=== PATIENT | male | born 1940 | race American Indian/Alaskan Native ===

== ENCOUNTER 2016-10-11 10:06 | Inpatient (IN) | payer MEDICARE, OTHER ==
[2016-10-09 16:24] LABS: HEMOGLOBIN 13.3 g/dL (13.6-17.8)
[2016-10-09 16:25] LABS: HEMATOCRIT 39.6 % (40.0-51.0)
[2016-10-09 16:37] LABS: BUN (BLOOD UREA NITROGEN) 19 MG/DL (6-23); CALCIUM, SERUM 8.9 MG/DL (8.5-10.4); CHLORIDE, SERUM 105 MMOL/L (96-112); CO2 (CARBON DIOXIDE) 29 MMOL/L (24-34); CREATININE 1.01 MG/DL (0.70-1.30); GFR AFRICAN AMERICAN 85 ML/MIN (>=60); GFR NON AFRICAN AMERICAN 73 ML/MIN (>=60); GLUCOSE, SERUM 171 MG/DL (60-99); POTASSIUM, SERUM 4.1 MMOL/L (3.5-5.3); SODIUM, SERUM 142 MMOL/L (135-148)
[2016-10-09 18:42] LABS: ASCORBIC ACID (UR NOT ORDER) NEG (NEG); BILIRUBIN, URINE NEGATIVE (NEG); KETONE, URINE NEGATIVE (NEG); LEUKOCYTE ESTERASE(NOT OR SMALL (NEG); WBC (NOT ORDERED) (RFLEX) 2 (0-5)
--- NOTE | ~2016-10-11 | DS ---
Discharge Summary [facility] [id number] [place]. [address] NAME: ALEXUS HOWELL : 44 STATUS : DIS IN PAT#: [id number] AGE: 76 ADM/REG DATE : 10/11/16 MR#: [id number] REPORT SERV DATE: 10/21/16 DICTATED BY: HIMA PEREZ DATE: 10/21/16 REPORT STATUS : Draft TRANSCRIBED BY: MODL DATE: 10/21/16 ADMISSION DATE: 10/11/2016 DISCHARGE DATE: 10/16/2016 DISCHARGE DIAGNOSES: 1. Hypertension. 2. Diabetes. 3. Benign prostatic hyperplasia with obstruction. DISCHARGE PROCEDURES: Robot-assisted laparoscopic simple prostatectomy. HOSPITAL COURSE: Mr. Howell is a very pleasant male with BPH and urinary retention. On the day of admission, he underwent the above-mentioned procedure. He tolerated this procedure well and there were no complications. For full operative details, see my operative note. Postoperatively, he was transferred to the recovery room, then to the floor in stable condition. A Koo catheter placed during surgery was maintaining his bladder, and CBI was eventually weaned to clear with his urine cleared. A ADILENE drain placed during the surgery was removed during this hospitalization. His hospital events were notable for hypertension, for which a hospice consult was obtained and recommendations were followed. He had a slight ileus, which was managed conservatively. He had good bowel function and bowel movements prior to discharge. On the day of discharge, his pain was well controlled with all pain medications. He was ambulating independently and his bowels are working. He has been deemed medically fit for home and was discharged to home. DISCHARGE MEDICATIONS: Please see discharge medication reconciliation work sheet. FOLLOWUP: Please follow up with me in two days for Koo catheter removal. INSTRUCTIONS: Please see my preprinted discharge instructions. CELINA/SHELLY Hima Perez MD / [id number] CC: Hima Perez MD
--- NOTE | ~2016-10-11 | CN ---
Consultation Report [facility] [address] [place]. [address] NAME: ALEXUS HOWELL : 44 STATUS : ADM IN [facility]#: [id number] AGE: 76 ADM/REG DATE : 10/11/16 MR#: [id number] REPORT SERV DATE: 10/12/16 DICTATED BY: KIT AGUILAR DATE: 10/12/16 REPORT STATUS : Draft TRANSCRIBED BY: SHELLY DATE: 10/12/16 CONSULTATION DATE OF CONSULTATION: 10/12/2016 REASON FOR CONSULTATION: Management of uncontrolled blood pressure. IMPRESSION: 1. Essential hypertension that is uncontrolled in this postoperative patient. 2. Type 2 diabetes mellitus. 3. Hematuria. 4. History of congestive heart failure. 5. Dermatophytosis of the nails. 6. Hypertensive heart disease. 7. Hyperthyroidism, last known TSH was 0.05. 8. Prostatic hypertrophy with prostate cancer. 9. Poor memory. 10.Generalized vitiligo. PLAN: Check routine labs including CBC and a renal profile. Start hydralazine 10 mg IV every six hours p.r.n. for blood pressure greater than 160/90. Increase Cozaar to 50 mg twice daily. Continue Coreg as ordered at 6.25 mg twice daily. Decrease IV fluids to KVO. Check a TSH on blood in lab. Check fingerstick blood glucose at bedtime and before meals. Continue the level 1 sliding scale that has already been ordered. We will check a hemoglobin A1c with next lab draw. At this time, the patient's database is incomplete and we will continue to follow and make recommendations as needed. For the status post prostate surgery and hematuria, we will be deferred to Dr. Reece Perez and the primary team. We thank you for this consultation. We will continue to follow with you. HISTORY OF PRESENT ILLNESS: The patient is a 76-year-old, southeast male, admitted to Urology Service status post robotic prostatectomy for possibility of prostate cancer and benign prostatic hypertrophy. Medicine Service was asked to see the patient for management of hypertension that was somewhat uncontrolled and the patient's systolic blood pressure as high as 207. This patient denies any nausea, vomiting, chest pain, shortness of breath, fever, chills, or any other constitutional symptoms at this time. REVIEW OF SYSTEMS: A 14-point review of systems negative. PAST MEDICAL HISTORY: As obtained from previous records. He has osteoarthritis of the knees, hypertension. He has benign hematuria, congestive heart failure with a last known EF of about 50% in 06/2014. He has type 2 diabetes mellitus with diabetic neuropathy and uncontrolled diabetes due to patient's lack of compliance. He has hypertensive heart disease. He has hyperthyroidism and has not been worked up due to patient's noncompliance. Consultation Report [address] [place]. [address] NAME: ALEXUS HOWELL : 44 STATUS : ADM IN PAT#: [id number] AGE: 76 ADM/REG DATE : 10/11/16 MR#: [id number] REPORT SERV DATE: 10/12/16 DICTATED BY: KIT AGUILAR DATE: 10/12/16 REPORT STATUS : Draft TRANSCRIBED BY: SHELLY DATE: 10/12/16 He has hypertrophy of the prostate. He has memory loss and he had general vitiligo. PAST SURGICAL HISTORY: Significant for prostate surgery and a hernia repair. ALLERGIES: NO KNOWN DRUG ALLERGIES. HOME MEDICATIONS: Include: Aspirin 81 mg once daily, Coreg 6.25 mg twice daily, vitamin D3 at 2000 units once daily, glyburide 2.5 mg once daily with 5 mg once in the evening, Cozaar 50 mg once daily, UroMax 0.4 mg once at bedtime and multivitamins. SOCIAL HISTORY: He has never been a smoker. He is . No use of alcohol or illicit substances. FAMILY HISTORY: Noncontributory for this encounter. PHYSICAL EXAMINATION: GENERAL: A southeast male, lying in bed, appears to be in no obvious respiratory distress. He is awake and alert. He is oriented. VITAL SIGNS: Blood pressure is 149/65, pulse is 78, saturation of 94% on room air, temp is 97.9. HEENT: Head is normocephalic, atraumatic. Pupils are equal, round, and reactive to light. Extraocular muscles are intact. Sclerae anicteric. Conjunctivae normal. Oropharynx without lesion. Tongue protrusion midline. Uvula midline. NECK: Supple. No jugular venous distention. No carotid bruits or thyromegaly is appreciated. No lymphadenopathy in the neck is palpable. HEART: Regular rate rhythm. No murmurs, rubs, or gallops are heard. PMI is nondisplaced. LUNGS: Clear to auscultation both anteriorly and posteriorly without rales, rhonchi, wheezing, or consolidation. ABDOMEN: Slightly obese, soft, nontender, good bowel sounds. No rebound or guarding. No organomegaly. EXTREMITIES: Without cyanosis, clubbing, or edema. Koo catheter is in place. Three-way irrigation is continuous. There is a pxmf-mh-vgfaeg red color urine in the Koo bag as well as into the tubing. NEUROLOGICAL: Patient is able to move all four at this time. LABORATORY DATA: Most recent labs: Sodium of 139, potassium 4.3, chloride is 104, bicarb 22, BUN 16, creatinine 1.07, glucose is 142, and calcium is 8.1. Last known hemoglobin A1c was in 2011 of 5.7. CBC: White count is 14.7, hemoglobin of 13.2, hematocrit 39, platelet count is 240,000. Urinalysis: No recent urinalysis except one done preoperatively. Urine culture: Diphtheroids, with gram-negative rods. No sensitivities or cultures performed. Once again, we thank you for this consultation. We will continue to follow with you. Consultation Report [address] [address] NAME: ALEXUS HOWELL : 44 STATUS : ADM IN [facility]#: [id number] AGE: 76 ADM/REG DATE : 10/11/16 MR#: [id number] REPORT SERV DATE: 10/12/16 DICTATED BY: KIT AGUILAR DATE: 10/12/16 REPORT STATUS : Draft TRANSCRIBED BY: SHELLY DATE: 10/12/16 SV/SHELLY Kit Aguilar M.D. / [id number] CC: MD Tobi Mazariegos M.D.
--- NOTE | ~2016-10-11 | OP ---
Record Of Operation [facility] [address] [place]. [address] NAME: ALEXUS HOWELL : 44 STATUS : ADM IN [facility]#: [id number] AGE: 76 ADM/REG DATE : 10/11/16 MR#: [id number] REPORT SERV DATE: 10/14/16 DICTATED BY: HIMA PEREZ DATE: 10/14/16 REPORT STATUS : Draft TRANSCRIBED BY: MODL DATE: 10/14/16 DATE OF PROCEDURE: 10/11/2016 ATTENDING PHYSICIAN: Hima Perez M.D. TITLE OF OPERATION: 1. Laparoscopic lysis of adhesions. 2. Robot-assisted laparoscopic simple prostatectomy. PREOPERATIVE DIAGNOSES: 1. Benign prostatic hypertrophy with obstruction. 2. Urinary retention. POSTOPERATIVE DIAGNOSES: 1. Benign prostatic hypertrophy with obstruction. 2. Urinary retention. INDICATIONS: Mr. Howell is a 76-year-old male with bilateral hydronephrosis and urinary retention due to the prostate greater than 150 g. He was given options. He elected for a robotic simple prostatectomy. ANESTHESIA: General. COMPLICATIONS: None. IMPLANTS: 1. Flat #1, round #10 ADILENE drain. 2. Pvttgk-qoeb-Pvmwre [address] way Koo catheter. SPECIMEN: Prostatic adenoma. NARRATIVE: The patient was brought to the operating room, identified by his wristband. General anesthesia was induced and Ancef was given for preoperative antibiotics. He was placed in the dorsal lithotomy position, prepped and draped in sterile fashion. I attempted to place a Koo catheter, however, we could not get a Koo catheter into his bladder due to his prostatic hyperplasia. His abdomen was then insufflated to a pressure of 15 mmHg using a Veress needle. A supraumbilical incision was made and a 12 mm port was placed into the body under direct vision. The abdomen was inspected. There were some adhesions from his prior surgery along the right side of the body and the pelvis. A second 8 mm port was placed in the right side of the body. Using laparoscopic scissors, an extensive lysis of adhesions was performed. This portion of the operation took approximately 45 minutes. Next, standard X-Y port placement was performed with two 8 mm ports in the left side of the body and one on the right side of the body. A 12 mm port was placed in the right lower quadrant, an video production assistant port and a separate 5 mm port was placed in the right upper quadrant for an video production assistant port. The patient was placed in deep Trendelenburg. The robot was docked. The bladder was dropped off the anterior abdominal wall with cautery and scissors. The bladder [facility] [address] [place]. [address] NAME: ALEXUS HOWELL : 44 STATUS : ADM IN PAT#: [id number] AGE: 76 ADM/REG DATE : 10/11/16 MR#: [id number] REPORT SERV DATE: 10/14/16 DICTATED BY: HIMA PEREZ DATE: 10/14/16 REPORT STATUS : Draft TRANSCRIBED BY: SHELLY DATE: 10/14/16 was markedly full and we could not get a catheter in. Therefore, a horizontal cystotomy was made several centimeters proximal to the bladder neck. Urine was suction evacuated from the bladder. The cystotomy was widened to expose the intravesical adenoma. A 2-0 Vicryl suture was placed to the adenoma as a marking suture. Next, the ureters were identified. They were in the lithotomy position. They were dilated. The bladder mucosa above the trigone on the adenoma was scored. This dissection was deepened with electrocautery through the detrusor fibers onto the adenoma. The adenoma dissection was carried laterally to the junction of the bladder and the prostatic capsule. Next, the adenoma was dissected off the capsule superiorly and laterally. Inferiorly the adenoma was dissected off the transitional zone from the base to the apex. Once the adenoma had been dissected off their respective structures from the base to the apex, the adenoma was almost free and the urethra was sharply divided. The adenoma was then placed into an EndoCatch bag. The bladder mucosa was then advanced into the prostatic fossa using a 3-0 V- Loc suture. Care was taken to oversew the prostatic pedicles at the 5 and 7 o'clock position. A second 3-0 V-Loc suture was used to oversew the dorsal venous stent. There was some U-shape configuration of the prostatic capsule. A 24-Chinese straight Koo catheter was placed into the bladder with robotic assistance. The cystotomy was closed in two layers. The first layer was a mucosal layer using a 3-0 V-Loc suture; second layer was a seromuscular layer using a 2-0 V-Loc suture. The bladder was irrigated, it was water tight. The balloon was inflated with 40 mL of sterile water. The catheter was placed on traction. CBI was initiated. The robot was undocked. The video production assistant port was closed with 0 Vicryl suture using a Brandon-Grisel device. A #10 round ADILENE drain was placed to the left most lateral video production assistant port. It was sutured in place with a 2-0 Prolene suture. All the ports were removed. The supraumbilical incision was enlarged at the skin and fascial levels. The adenoma was removed and sent to pathology. The fascia was closed with 0 Monocryl suture in a vfwkru-ty-brwey fashion. The wounds were irrigated clear. The subcutaneous tissues were closed with a 3-0 Vicryl suture. Skin was closed with 4-0 Monocryl suture. Dermabond dressing was placed. The patient was awoken from anesthesia and transferred to the recovery room in stable condition. His urine was clear off CBI upon leaving the operating room. CELINA/SHELLY Hima Perez MD / [id number] CC: Hima Perez MD
[~2016-10-11 10:06] MED LIST: ASAB PO; COREG6 PO; COZ50 PO; DIABET2.5 PO; DIABETA5 PO; VITAMIN B-121000 MC1 SL; VITAMIN D31000 UNIT PO; [UNRECOGNIZED DRUG - OTHER]; [UNRECOGNIZED DRUG - OTHER] PO
[2016-10-11 20:39] LABS: BASOPHILS 0.2 %; BASOPHILS ABSOLUTE 0.02 10/3/uL (0.0-0.16); EOSINOPHILS 0.2 %; EOSINOPHILS ABSOLUTE 0.02 10/3/uL (0.0-0.53); HEMATOCRIT 40.7 % (40.0-51.0); HEMOGLOBIN 13.6 g/dL (13.6-17.8); IMMATURE GRANULOCYTES 0.3 %; IMMATURE GRANULOCYTES ABSOLUTE 0.03 10/3/uL (0.0-0.11); LYMPHOCYTES 22.8 %; MANUAL DIFF NO %; MEAN CORPUS HGB CONC 33.4 g/dL (32.0-36.0); MEAN CORPUSCULAR VOLUME 86.8 fL (80-100); MEAN PLATELET VOLUME 8.4 fL (9.2-13.0); MONOCYTES 1.1 %; MONOCYTES ABSOLUTE 0.11 10/3/uL (0.21-1.20); NEUTROPHILS 75.4 %; NEUTROPHILS ABSOLUTE 7.27 10/3/uL (2.02-8.40); PLATELET COUNT 213 10/3/uL (150-400); RBC DISTRIBUTION WIDTH 14.6 % (12.0-16.0); RED CELL COUNT 4.69 10/6/uL (4.7-6.1); WHITE BLOOD CELLS 9.7 10/3/uL (4.5-10.5)
[2016-10-11 20:52] LABS: CALCIUM, SERUM 8.1 MG/DL (8.5-10.4); CHLORIDE, SERUM 105 MMOL/L (96-112); CO2 (CARBON DIOXIDE) 27 MMOL/L (24-34); CREATININE 1.03 MG/DL (0.70-1.30); GFR AFRICAN AMERICAN 83 ML/MIN (>=60); GFR NON AFRICAN AMERICAN 71 ML/MIN (>=60); SODIUM, SERUM 140 MMOL/L (135-148)
[2016-10-11 20:53] LABS: BUN (BLOOD UREA NITROGEN) 13 MG/DL (6-23); GLUCOSE, SERUM 134 MG/DL (60-99)
[2016-10-12 05:27] LABS: BUN (BLOOD UREA NITROGEN) 16 MG/DL (6-23); CALCIUM, SERUM 8.1 MG/DL (8.5-10.4); CHLORIDE, SERUM 104 MMOL/L (96-112); CREATININE 1.07 MG/DL (0.70-1.30); GFR AFRICAN AMERICAN 79 ML/MIN (>=60); GFR NON AFRICAN AMERICAN 68 ML/MIN (>=60); GLUCOSE, SERUM 142 MG/DL (60-99); POTASSIUM, SERUM 4.3 MMOL/L (3.5-5.3); SODIUM, SERUM 139 MMOL/L (135-148)
[2016-10-12 05:31] LABS: BASOPHILS 0.1 %; BASOPHILS ABSOLUTE 0.01 10/3/uL (0.0-0.16); EOSINOPHILS 0 %; HEMATOCRIT 39.7 % (40.0-51.0); HEMOGLOBIN 13.2 g/dL (13.6-17.8); IMMATURE GRANULOCYTES 0.2 %; IMMATURE GRANULOCYTES ABSOLUTE 0.03 10/3/uL (0.0-0.11); LYMPHOCYTES ABSOLUTE 2.58 10/3/uL (0.67-4.30); MEAN CORPUS HGB CONC 33.2 g/dL (32.0-36.0); MEAN CORPUSCULAR VOLUME 87.3 fL (80-100); MEAN PLATELET VOLUME 8.8 fL (9.2-13.0); MONOCYTES ABSOLUTE 0.57 10/3/uL (0.21-1.20); NEUTROPHILS 77.7 %; NEUTROPHILS ABSOLUTE 11.15 10/3/uL (2.02-8.40); PLATELET COUNT 240 10/3/uL (150-400); RBC DISTRIBUTION WIDTH 14.6 % (12.0-16.0); RED CELL COUNT 4.55 10/6/uL (4.7-6.1)
[2016-10-12 05:32] LABS: CO2 (CARBON DIOXIDE) 22 MMOL/L (24-34)
[2016-10-12 05:42] LABS: MANUAL DIFF NO %; WHITE BLOOD CELLS 14.3 10/3/uL (4.5-10.5)
[2016-10-13 04:23] LABS: BASOPHILS 0.1 %; BASOPHILS ABSOLUTE 0.01 10/3/uL (0.0-0.16); EOSINOPHILS 0.1 %; EOSINOPHILS ABSOLUTE 0.01 10/3/uL (0.0-0.53); IMMATURE GRANULOCYTES 0.2 %; IMMATURE GRANULOCYTES ABSOLUTE 0.02 10/3/uL (0.0-0.11); LYMPHOCYTES 14.6 %; LYMPHOCYTES ABSOLUTE 1.75 10/3/uL (0.67-4.30); MEAN CORPUS HGB CONC 33.3 g/dL (32.0-36.0); MEAN CORPUSCULAR HEMOGLOB 28.7 pg (26.0-34.0); MEAN CORPUSCULAR VOLUME 86.1 fL (80-100); MEAN PLATELET VOLUME 8.6 fL (9.2-13.0); MONOCYTES 4.8 %; MONOCYTES ABSOLUTE 0.57 10/3/uL (0.21-1.20); NEUTROPHILS 80.2 %; PLATELET COUNT 220 10/3/uL (150-400); RBC DISTRIBUTION WIDTH 14.6 % (12.0-16.0); RED CELL COUNT 4.53 10/6/uL (4.7-6.1)
[2016-10-13 04:25] LABS: MANUAL DIFF NO %
[2016-10-13 04:44] LABS: BUN (BLOOD UREA NITROGEN) 18 MG/DL (6-23); CHLORIDE, SERUM 103 MMOL/L (96-112); CREATININE 0.98 MG/DL (0.70-1.30); GFR AFRICAN AMERICAN 88 ML/MIN (>=60); GFR NON AFRICAN AMERICAN 76 ML/MIN (>=60); PHOSPHORUS, SERUM 1.7 MG/DL (2.5-4.5); POTASSIUM, SERUM 3.8 MMOL/L (3.5-5.3); SODIUM, SERUM 139 MMOL/L (135-148)
[2016-10-13 04:47] LABS: ALBUMIN 2.9 G/DL (3.5-5.0); CO2 (CARBON DIOXIDE) 27 MMOL/L (24-34); GLUCOSE, SERUM 225 MG/DL (60-99)
[2016-10-14 05:56] LABS: BASOPHILS 0.1 %; BASOPHILS ABSOLUTE 0.01 10/3/uL (0.0-0.16); EOSINOPHILS 1.3 %; EOSINOPHILS ABSOLUTE 0.14 10/3/uL (0.0-0.53); HEMOGLOBIN 11.4 g/dL (13.6-17.8); IMMATURE GRANULOCYTES 0.3 %; IMMATURE GRANULOCYTES ABSOLUTE 0.03 10/3/uL (0.0-0.11); LYMPHOCYTES 29.5 %; LYMPHOCYTES ABSOLUTE 3.08 10/3/uL (0.67-4.30); MEAN CORPUS HGB CONC 33.7 g/dL (32.0-36.0); MEAN CORPUSCULAR HEMOGLOB 29.4 pg (26.0-34.0); MEAN CORPUSCULAR VOLUME 87.1 fL (80-100); MEAN PLATELET VOLUME 8.5 fL (9.2-13.0); MONOCYTES 8.5 %; MONOCYTES ABSOLUTE 0.89 10/3/uL (0.21-1.20); NEUTROPHILS 60.3 %; NEUTROPHILS ABSOLUTE 6.28 10/3/uL (2.02-8.40); PLATELET COUNT 204 10/3/uL (150-400); RBC DISTRIBUTION WIDTH 14.9 % (12.0-16.0); RED CELL COUNT 3.88 10/6/uL (4.7-6.1); WHITE BLOOD CELLS 10.4 10/3/uL (4.5-10.5)
[2016-10-14 05:59] LABS: HEMATOCRIT 33.8 % (40.0-51.0); MANUAL DIFF NO %
[2016-10-14 06:20] LABS: ALBUMIN 2.5 G/DL (3.5-5.0); CALCIUM, SERUM 7.7 MG/DL (8.5-10.4); CHLORIDE, SERUM 106 MMOL/L (96-112); CO2 (CARBON DIOXIDE) 26 MMOL/L (24-34); CREATININE 0.98 MG/DL (0.70-1.30); GFR AFRICAN AMERICAN 88 ML/MIN (>=60); GFR NON AFRICAN AMERICAN 76 ML/MIN (>=60); POTASSIUM, SERUM 4.1 MMOL/L (3.5-5.3); SODIUM, SERUM 142 MMOL/L (135-148)
[2016-10-14 06:21] LABS: BUN (BLOOD UREA NITROGEN) 23 MG/DL (6-23); GLUCOSE, SERUM 133 MG/DL (60-99); PHOSPHORUS, SERUM 1.1 MG/DL (2.5-4.5)
[2016-10-15 06:08] LABS: BASOPHILS 0.1 %; BASOPHILS ABSOLUTE 0.01 10/3/uL (0.0-0.16); EOSINOPHILS 1.8 %; EOSINOPHILS ABSOLUTE 0.18 10/3/uL (0.0-0.53); HEMATOCRIT 34.8 % (40.0-51.0); HEMOGLOBIN 11.6 g/dL (13.6-17.8); IMMATURE GRANULOCYTES 0.3 %; IMMATURE GRANULOCYTES ABSOLUTE 0.03 10/3/uL (0.0-0.11); LYMPHOCYTES 27.7 %; LYMPHOCYTES ABSOLUTE 2.78 10/3/uL (0.67-4.30); MEAN CORPUS HGB CONC 33.3 g/dL (32.0-36.0); MEAN CORPUSCULAR HEMOGLOB 29.1 pg (26.0-34.0); MEAN CORPUSCULAR VOLUME 87.4 fL (80-100); MEAN PLATELET VOLUME 8.5 fL (9.2-13.0); MONOCYTES 7.3 %; MONOCYTES ABSOLUTE 0.73 10/3/uL (0.21-1.20); NEUTROPHILS 62.8 %; PLATELET COUNT 184 10/3/uL (150-400); RBC DISTRIBUTION WIDTH 14.7 % (12.0-16.0); RED CELL COUNT 3.98 10/6/uL (4.7-6.1)
[2016-10-15 06:09] LABS: MANUAL DIFF NO %
[2016-10-16] MEDS ORDERED: DSS PO (09:13)
[2016-10-16] MEDS ORDERED: PCET PO (09:14)
[2016-10-16] MEDS ORDERED: MACROBID PO (09:14)
== END 2016-10-16 18:32 | disposition home or self-care (01) | DRG 717 ==
LOC: SDC/OF 10:06 → 4SO 21:11
PROVIDERS: Internal Medicine; Urology
PROC: 8E0W4CZ Robotic Assisted Procedure of Trunk Region, Percutaneous Endoscopic Approach (ICD-10-PCS; 2016-10-11)
PROC: 0VB04ZZ Excision of Prostate, Percutaneous Endoscopic Approach (ICD-10-PCS; principal; 2016-10-11 11:00)
DX: N40.1 Benign prostatic hyperplasia with lower urinary tract symptoms (principal); N13.30 Unspecified hydronephrosis; I11.0 Hypertensive heart disease with heart failure; E11.40 Type 2 diabetes mellitus with diabetic neuropathy, unspecified; K56.7 Ileus, unspecified; R31.9 Hematuria, unspecified; B35.9 Dermatophytosis, unspecified; I25.10 Atherosclerotic heart disease of native coronary artery without angina pectoris; L80 Vitiligo; E05.90 Thyrotoxicosis, unspecified without thyrotoxic crisis or storm; B35.1 Tinea unguium; E11.65 Type 2 diabetes mellitus with hyperglycemia; R41.3 Other amnesia; Z79.82 Long term (current) use of aspirin; Z79.84 Long term (current) use of oral hypoglycemic drugs
CPT/HCPCS: 36415; 74000; 80048; 80069; 81001; 82570; 82962; 83036; 84100; 84443; 85014; 85018; 85025; 86850; 86900; 86901; 87086; 88307; 93005; A9270-GY; J0360; J0690; J1170; J2250; J2405; J2710; J2765; J3010